=== PATIENT | female | born 1960 | race Caucasian/White ===

== ENCOUNTER 2023-09-19 08:47 | Day surgery (SDC) | payer BC, OTHER ==
[2023-09-11 13:27] VITALS: BMI 19.2
[2023-09-19 09:02] VITALS: RESP 18
[2023-09-19 10:19] VITALS: TEMP 97
[2023-09-19 11:04] VITALS: BP 110/64; PULSE 72
== END 2023-09-19 11:00 | disposition home or self-care (01) ==
LOC: FASU-ENDO 08:47
PROVIDERS: ATTEND Internal Medicine Gastroenterology
PROC: 0DBL8ZX Excision of Transverse Colon, Via Natural or Artificial Opening Endoscopic, Diagnostic (ICD-10-PCS; principal; 2023-09-19 09:51)
DX: Z12.11 Encounter for screening for malignant neoplasm of colon (principal); K63.5 Polyp of colon; K64.1 Second degree hemorrhoids; K57.30 Diverticulosis of large intestine without perforation or abscess without bleeding
CPT/HCPCS: 88305-TC